=== PATIENT | male | born 1930 | race Asian ===

== ENCOUNTER 2017-11-02 11:59 | Emergency (ER) | payer OTHER, MEDICAID ==
[~2017-11-02] VITALS: Ht 175.3 cm; Wt 64.0 kg
[2017-11-02 12:01] VITALS: BP 145/94
[2017-11-02] MEDS ORDERED: LOVA10TA PO (12:48)
[2017-11-02] MEDS ORDERED: OXYB5TAB33 PO (12:48)
[2017-11-02] MEDS ORDERED: HYDR200T72 PO (12:48)
[2017-11-02] MEDS ORDERED: PRED5TAB25 PO (12:48)
[2017-11-02] MEDS ORDERED: METF500T5 PO (12:48)
[2017-11-02] MEDS ORDERED: TAMS-11 PO (12:52)
[2017-11-02] MEDS ORDERED: POLY17PO5 PO (12:52)
[2017-11-02] MEDS ORDERED: AMIT10TA PO (12:52)
[2017-11-02] MEDS ORDERED: PRAM0.125 PO (12:52)
[2017-11-02] MEDS ORDERED: FOLI0.4T2 PO (12:52)
[2017-11-02] MEDS ORDERED: OXYcodone/APAP 5/325MG TABLET PO ONE (13:00)
[2017-11-02] MEDS ORDERED: OXYcodone/APAP 5/325MG TABLET ONE (13:20)
== END 2017-11-02 14:20 | disposition home or self-care (01) ==
LOC: ED 14:14
DX: M47.896 Other spondylosis, lumbar region (principal); M54.16 Radiculopathy, lumbar region; M54.41 Lumbago with sciatica, right side; M19.90 Unspecified osteoarthritis, unspecified site; Z79.84 Long term (current) use of oral hypoglycemic drugs
CPT/HCPCS: 72110; 99284

== ENCOUNTER 2017-11-04 14:21 | Emergency (ER) | payer OTHER, MEDICAID ==
[~2017-11-04] VITALS: Ht 175.3 cm; Wt 63.6 kg
[~2017-11-04 14:21] MED LIST: AMIT10TA PO; FOLI0.4T2 PO; HYDR200T72 PO; LOVA10TA PO; METF500T5 PO; OXYB5TAB33 PO; POLY17PO5 PO; PRAM0.125 PO; PRED5TAB25 PO; TAMS-11 PO
[2017-11-04] MEDS ORDERED: KETOROLAC 30 MG/1 ML ONE (15:44)
[2017-11-04] MEDS ORDERED: CYCLOBENZAPRINE 10 MG TABLET ONE (15:45)
[2017-11-04] MEDS ORDERED: KETOROLAC 30 MG/1 ML IM ONE (16:00)
[2017-11-04] MEDS ORDERED: CYCLOBENZAPRINE 10 MG TABLET PO ONE (16:00)
[2017-11-04 17:20] VITALS: BP 139/57
== END 2017-11-04 17:23 | disposition home or self-care (01) ==
LOC: ED 16:50
DX: M46.1 Sacroiliitis, not elsewhere classified (principal); M19.90 Unspecified osteoarthritis, unspecified site; E11.9 Type 2 diabetes mellitus without complications
CPT/HCPCS: 72202; 96372; 99284; J1885

== ENCOUNTER 2017-11-25 17:26 | Emergency (ER) | payer OTHER, MEDICAID ==
[~2017-11-25] VITALS: Ht 175.3 cm; Wt 64.1 kg
[2017-11-25 18:52] LABS: BASOPHILS # (AUTO) 0.02 x10^3/uL (0-0.1); BASOPHILS % (AUTO) 1 % (0-1); EOSINOPHILS # (AUTO) 0.16 x10^3/uL (0-0.4); EOSINOPHILS % (AUTO) 3 % (1-7); LYMPHOCYTES # (AUTO) 1.56 x10^3/uL (1-3.4); LYMPHOCYTES % (AUTO) 33 % (22-44); MD NO; MEAN CORPUSCULAR HEMOGLOBIN 34.4 pg (27.5-34.5); MEAN CORPUSCULAR HGB CONC 33.6 g/dL (33.2-36.2); MEAN CORPUSCULAR VOLUME 102.3 fL (81-97); MEAN PLATELET VOLUME 6.8 fL (7.4-10.4); MONOCYTES % (AUTO) 6 % (2-9); NEUTROPHILS # (AUTO) 2.67 x10^3/uL (1.8-6.8); NEUTROPHILS % (AUTO) 57 % (42-75); PLATELET COUNT 217 x10^3/uL (130-400); RED BLOOD COUNT 3.35 x10^6/uL (4.38-5.82)
[2017-11-25 19:02] LABS: ALANINE AMINOTRANSFERASE 37 U/L (12-78); ALBUMIN 3.6 g/dL (3.4-5.0); ANION GAP 3 mmol/L (5-15); CHLORIDE 108 mmol/L (98-107); CREATININE 0.87 mg/dL (0.7-1.3)
[2017-11-25 19:05] LABS: ALKALINE PHOSPHATASE 57 U/L (45-117); BILIRUBIN,TOTAL 0.5 mg/dL (0.2-1.0); TOTAL PROTEIN 6.6 g/dL (6.4-8.2)
[2017-11-25] MEDS ORDERED: HYDROmorphone 2 MG/ML, 1ML ONE (19:29)
[2017-11-25] MEDS ORDERED: HYDROmorphone 1 MG/ML, 1ML IM ONE (19:30)
[2017-11-25 21:41] VITALS: BP 130/78
== END 2017-11-25 21:43 | disposition home or self-care (01) ==
LOC: ED 21:08
DX: M54.41 Lumbago with sciatica, right side (principal); E11.9 Type 2 diabetes mellitus without complications; M19.90 Unspecified osteoarthritis, unspecified site
CPT/HCPCS: 36415; 80053; 85025; 96372; 99284; J1170; 99282

== ENCOUNTER 2018-01-01 20:13 | Emergency (ER) | payer OTHER, MEDICAID ==
[2018-01-01] MEDS ORDERED: HYDROcodone/APAP 5/325 TABLET ONE (21:03)
[2018-01-01 21:19] LABS: BASOPHILS # (AUTO) 0.02 x10^3/uL (0-0.1); BASOPHILS % (AUTO) 0 % (0-1); EOSINOPHILS # (AUTO) 0.02 x10^3/uL (0-0.4); EOSINOPHILS % (AUTO) 0 % (1-7); LYMPHOCYTES # (AUTO) 2.07 x10^3/uL (1-3.4); LYMPHOCYTES % (AUTO) 33 % (22-44); MD NO; MEAN CORPUSCULAR HEMOGLOBIN 34.1 pg (27.5-34.5); MEAN CORPUSCULAR HGB CONC 34.1 g/dL (33.2-36.2); MEAN CORPUSCULAR VOLUME 99.9 fL (81-97); MEAN PLATELET VOLUME 7.8 fL (7.4-10.4); MONOCYTES % (AUTO) 6 % (2-9); NEUTROPHILS % (AUTO) 60 % (42-75); PLATELET COUNT 163 x10^3/uL (130-400); RED BLOOD COUNT 3.06 x10^6/uL (4.38-5.82); RED CELL DISTRIBUTION WIDTH 14.4 % (9.4-14.8)
[2018-01-01 21:23] LABS: ALANINE AMINOTRANSFERASE 70 U/L (12-78); ALBUMIN 3.4 g/dL (3.4-5.0); ANION GAP 3 mmol/L (5-15); CALCIUM 8.4 mg/dL (8.5-10.1); CHLORIDE 109 mmol/L (98-107); CREATININE 0.95 mg/dL (0.7-1.3)
[2018-01-01] MEDS: HYDROcodone/APAP 5/325 TABLET PO PRN ×2 (21:24→21:25)
[2018-01-01 21:25] LABS: ALKALINE PHOSPHATASE 63 U/L (45-117); BILIRUBIN,TOTAL 0.3 mg/dL (0.2-1.0); TOTAL PROTEIN 6.4 g/dL (6.4-8.2)
[2018-01-01 21:54] VITALS: BP 117/61
== END 2018-01-01 22:16 | disposition home or self-care (01) ==
LOC: ED 21:26
DX: G95.29 Other cord compression (principal); M50.30 Other cervical disc degeneration, unspecified cervical region; M19.90 Unspecified osteoarthritis, unspecified site; E11.9 Type 2 diabetes mellitus without complications; R51 Headache
CPT/HCPCS: 36415; 70450; 72125; 80053; 85025; 99285

== ENCOUNTER 2018-03-20 15:16 | Inpatient (IN) | payer OTHER, MEDICAID ==
[~2018-03-20] VITALS: Ht 177.8 cm; Wt 60.9 kg
[~2018-03-20 15:16] MED LIST changes: +METF500T17 PO; -METF500T5 PO
[2018-03-20] MEDS ORDERED: SODIUM CHLORIDE FLUSH 10ML SYR IVF ONE (15:30)
[2018-03-20] MEDS ORDERED: SODIUM CHLORIDE 0.9% 1,000ML IVBOLUS ONE (15:30)
[2018-03-20 16:01] LABS: BASOPHILS # (AUTO) 0.03 x10^3/uL (0-0.1); BASOPHILS % (AUTO) 1 % (0-1); EOSINOPHILS % (AUTO) 0 % (1-7); LYMPHOCYTES # (AUTO) 0.98 x10^3/uL (1-3.4); LYMPHOCYTES % (AUTO) 19 % (22-44); MD NO; MEAN CORPUSCULAR HEMOGLOBIN 35.7 pg (27.5-34.5); MEAN CORPUSCULAR HGB CONC 34.4 g/dL (33.2-36.2); MEAN CORPUSCULAR VOLUME 103.7 fL (81-97); MEAN PLATELET VOLUME 7.5 fL (7.4-10.4); MONOCYTES # (AUTO) 0.11 x10^3/uL (0.2-0.8); MONOCYTES % (AUTO) 2 % (2-9); NEUTROPHILS # (AUTO) 4.13 x10^3/uL (1.8-6.8); NEUTROPHILS % (AUTO) 79 % (42-75); PLATELET COUNT 173 x10^3/uL (130-400); RED BLOOD COUNT 3.11 x10^6/uL (4.38-5.82); RED CELL DISTRIBUTION WIDTH 14.4 % (9.4-14.8)
[2018-03-20] MEDS ORDERED: ALEN70TA3 PO (16:01)
[2018-03-20] MEDS ORDERED: CALC625T13 PO (16:01)
[2018-03-20] MEDS ORDERED: GABA300C10 PO (16:01)
[2018-03-20] MEDS ORDERED: METH4TAB2 PO (16:01)
[2018-03-20] MEDS ORDERED: PYRI50TA9 PO (16:01)
[2018-03-20] MEDS ORDERED: ISON300T4 PO (16:01)
[2018-03-20 16:12] LABS: INTERNATIONAL NORMALIZED RATIO 1.05 (0.93-1.1); PROTHROMBIN TIME 10.9 Seconds (9.6-11.5)
[2018-03-20] MEDS ORDERED: BACITRACIN ZINC OINT 500U/GM, 0.9 GM ONE (16:12)
[2018-03-20 16:13] LABS: ALBUMIN 3.3 g/dL (3.4-5.0); ANION GAP 6 mmol/L (5-15); CALCIUM 8.6 mg/dL (8.5-10.1); CHLORIDE 113 mmol/L (98-107)
[2018-03-20 16:16] LABS: ALANINE AMINOTRANSFERASE 35 U/L (12-78); ALKALINE PHOSPHATASE 53 U/L (45-117); BILIRUBIN,TOTAL 0.4 mg/dL (0.2-1.0); CREATININE 0.85 mg/dL (0.7-1.3)
[2018-03-20] MEDS ORDERED: DILTIAZEM 5 MG/ML, 5ML IVPush ONE (17:00)
[2018-03-20] MEDS ORDERED: DILTIAZEM 5 MG/ML, 5ML ONE (17:07)
[2018-03-20 18:25] VITALS: BP 109/43
[2018-03-20] MEDS ORDERED: SODIUM CHLORIDE 0.9% 1,000 ML IV SCH (20:04)
[2018-03-20] MEDS ORDERED: LABETALOL 5MG/ML, 20ML IVPush PRN (20:30)
[2018-03-20] MEDS ORDERED: BISACODYL 10 MG SUPP PR PRN (20:30)
[2018-03-20] MEDS ORDERED: ONDANSETRON 2MG/ML, 2ML IVPush PRN (20:30)
[2018-03-20] MEDS ORDERED: POLYETHYLENE GLYCOL 17 GM PACKET PO PRN (20:30)
[2018-03-20] MEDS ORDERED: ACETAMINOPHEN 325 MG TABLET PO PRN (20:30)
[2018-03-20] MEDS ORDERED: morphine SULFATE 10 MG/ML, 1ML IVPush PRN (20:30)
[2018-03-20] MEDS ORDERED: DOCUSATE 100 MG CAPSULE PO PRN (20:30)
[2018-03-20] MEDS ORDERED: hydrALAzine 20 MG/ML, 1ML IVPush PRN (20:30)
[2018-03-20] MEDS ORDERED: ONDANSETRON ODT 4 MG PO PRN (20:30)
[2018-03-20] MEDS ORDERED: PROMETHAZINE 25 MG/ML, 1ML IM PRN (20:30)
[2018-03-20 21:07] VITALS: BP 101/52
[2018-03-20 21:07] LABS: CULTURE INDICATED? YES; MICROSCOPIC INDICATED
[2018-03-20 21:09] LABS: FREE T4 (FREE THYROXINE) 0.96 ng/dL (0.76-1.46); THYROID STIMULATING HORMONE 0.603 mIU/L (0.358-3.740)
[2018-03-20] MEDS: metFORMIN 500 MG TABLET PO SCH (21:10)
[2018-03-20] MEDS: ENOXAPARIN 60 MG/0.6 ML SQ SCH (21:11)
[2018-03-20] MEDS: GABAPENTIN 100 MG CAPSULE PO SCH (21:11)
[2018-03-20 21:19] LABS: HEMOGLOBIN A1C 7.3 % (4.2-6.3)
[2018-03-20] MEDS: METOPROLOL TARTRATE 25 MG TABLET PO SCH (21:21)
[2018-03-20] MEDS ORDERED: CELE200C PO (21:38)
[2018-03-20] MEDS ORDERED: MULT-658 PO (21:40)
[2018-03-20] MEDS ORDERED: CALC-112 PO (21:40)
[2018-03-20] MEDS ORDERED: FINA5TAB4 PO (21:40)
[2018-03-21] VITALS (8 sets, daily range): BP systolic 96–123; BP diastolic 51–72
[2018-03-21] MEDS: METOPROLOL TARTRATE 25 MG TABLET PO SCH ×2 (05:00→18:15)
[2018-03-21 05:12] LABS: BASOPHILS # (AUTO) 0.05 x10^3/uL (0-0.1); BASOPHILS % (AUTO) 1 % (0-1); EOSINOPHILS # (AUTO) 0.06 x10^3/uL (0-0.4); EOSINOPHILS % (AUTO) 1 % (1-7); LYMPHOCYTES # (AUTO) 3.43 x10^3/uL (1-3.4); LYMPHOCYTES % (AUTO) 44 % (22-44); MD NO; MEAN CORPUSCULAR HGB CONC 33.9 g/dL (33.2-36.2); MEAN CORPUSCULAR VOLUME 103.3 fL (81-97); MEAN PLATELET VOLUME 8.3 fL (7.4-10.4); MONOCYTES # (AUTO) 0.44 x10^3/uL (0.2-0.8); MONOCYTES % (AUTO) 6 % (2-9); NEUTROPHILS # (AUTO) 3.79 x10^3/uL (1.8-6.8); NEUTROPHILS % (AUTO) 49 % (42-75); PLATELET COUNT 112 x10^3/uL (130-400); RED CELL DISTRIBUTION WIDTH 14.1 % (9.4-14.8)
[2018-03-21 05:26] LABS: ALBUMIN 3.2 g/dL (3.4-5.0); ANION GAP 5 mmol/L (5-15); CALCIUM 8.2 mg/dL (8.5-10.1); CHLORIDE 112 mmol/L (98-107)
[2018-03-21 05:30] LABS: ALANINE AMINOTRANSFERASE 45 U/L (12-78); ALKALINE PHOSPHATASE 47 U/L (45-117); BILIRUBIN,TOTAL 0.6 mg/dL (0.2-1.0); CHOL/HDL RATIO 2.1; CHOLESTEROL, TOTAL 138 mg/dL (140-239); CREATININE 0.61 mg/dL (0.7-1.3); HDL CHOL % 49 % (26-37); HDL CHOLESTEROL (DIRECT) 67 mg/dL (40-60); LDL CHOLESTEROL,CALCULATED 53 mg/dL (54-169); LDL/HDL RATIO 0.8 (0.5-3.0); TOTAL PROTEIN 5.7 g/dL (6.4-8.2); TRIGLYCERIDES 91 mg/dL (50-200); VLDL CHOLESTEROL 18 mg/dL (0-25)
[2018-03-21] MEDS: CALCIUM POLYCARBOPHIL 625 MG TABLET PO SCH (08:20)
[2018-03-21] MEDS: TAMSULOSIN 0.4 MG CAP.ER.24H PO SCH (08:20)
[2018-03-21] MEDS: PYRIDOXINE 50MG TABLET PO SCH (08:20)
[2018-03-21] MEDS: metFORMIN 500 MG TABLET PO SCH ×2 (08:20→20:14)
[2018-03-21] MEDS: PRAMIPEXOLE 0.125MG TABLET PO SCH (08:21)
[2018-03-21] MEDS: ISONIAZID 300 MG TABLET PO SCH (08:21)
[2018-03-21] MEDS: GABAPENTIN 100 MG CAPSULE PO SCH ×3 (08:22→20:14)
[2018-03-21] MEDS: HYDROXYCHLOROQUINE 200 MG TABLET PO SCH (08:22)
[2018-03-21] MEDS: OXYBUTYNIN CHLORIDE 5 MG TABLET PO SCH (08:22)
[2018-03-21] MEDS: FOLIC ACID 1 MG TABLET PO SCH (08:23)
[2018-03-21] MEDS: ENOXAPARIN 60 MG/0.6 ML SQ SCH ×2 (08:23→20:15)
[2018-03-21] MEDS ORDERED: ERGOCALCIFEROL 50,000 UNIT CAPSULE PO SCH (09:00)
[2018-03-21] MEDS: FINASTERIDE 5 MG TABLET PO SCH (13:47)
[2018-03-21 17:18] LABS: CLOSTRIDIUM DIFFICILE ANTIGEN NEGATIVE; CLOSTRIDIUM DIFFICILE TOXIN NEGATIVE (Negative)
[2018-03-22 00:20] VITALS: BP 129/66
[2018-03-22 05:59] VITALS: BP 139/67
[2018-03-22] MEDS: METOPROLOL TARTRATE 25 MG TABLET PO SCH (06:03)
[2018-03-22] MEDS ORDERED: ALENDRONATE 35 MG TABLET PO SCH (06:30)
[2018-03-22 06:35] VITALS: BP 124/62
[2018-03-22] MEDS: ENOXAPARIN 60 MG/0.6 ML SQ SCH (07:43)
[2018-03-22] MEDS: metFORMIN 500 MG TABLET PO SCH (07:44)
[2018-03-22] MEDS: FINASTERIDE 5 MG TABLET PO SCH (07:44)
[2018-03-22] MEDS: GABAPENTIN 100 MG CAPSULE PO SCH ×2 (07:44→16:13)
[2018-03-22] MEDS: PRAMIPEXOLE 0.125MG TABLET PO SCH (07:44)
[2018-03-22] MEDS: CALCIUM POLYCARBOPHIL 625 MG TABLET PO SCH (07:44)
[2018-03-22] MEDS: TAMSULOSIN 0.4 MG CAP.ER.24H PO SCH (07:45)
[2018-03-22] MEDS: ISONIAZID 300 MG TABLET PO SCH (07:45)
[2018-03-22] MEDS: OXYBUTYNIN CHLORIDE 5 MG TABLET PO SCH (07:45)
[2018-03-22] MEDS: FOLIC ACID 1 MG TABLET PO SCH (07:45)
[2018-03-22] MEDS: HYDROXYCHLOROQUINE 200 MG TABLET PO SCH (07:49)
[2018-03-22] MEDS: PYRIDOXINE 50MG TABLET PO SCH (07:50)
[2018-03-22 08:31] LABS: TROPONIN I 0.026 ng/mL (0.000-0.045)
[2018-03-22] MEDS ORDERED: REGADENOSON 0.4 MG/5 ML SYRINGE ONE (08:59)
[2018-03-22 12:19] VITALS: BP 101/57
[2018-03-22] MEDS ORDERED: ERGO500017 PO (14:42)
[2018-03-22] MEDS ORDERED: METO25TA35 PO (14:42)
== END 2018-03-22 16:30 | disposition home or self-care (01) | DRG 309 ==
LOC: ED 17:43 → EDIP 17:44 → 5SO 18:18 → DCLOUNGE 03-22 16:15
PROVIDERS: ADMIT Hospitalist; ATTEND Hospitalist
DX: I48.91 Unspecified atrial fibrillation (principal); D68.69 Other thrombophilia; E44.0 Moderate protein-calorie malnutrition; Z68.1 Body mass index [BMI] 19.9 or less, adult; D53.9 Nutritional anemia, unspecified; E11.9 Type 2 diabetes mellitus without complications; E55.9 Vitamin D deficiency, unspecified; F03.90 Unspecified dementia, unspecified severity, without behavioral disturbance, psychotic disturbance, mood disturbance, and anxiety; I35.1 Nonrheumatic aortic (valve) insufficiency; I44.4 Left anterior fascicular block; I45.81 Long QT syndrome; M81.0 Age-related osteoporosis without current pathological fracture; W18.39XA Other fall on same level, initial encounter; N40.0 Benign prostatic hyperplasia without lower urinary tract symptoms; R56.9 Unspecified convulsions; S00.81XA Abrasion of other part of head, initial encounter; Z20.1 Contact with and (suspected) exposure to tuberculosis; Z87.891 Personal history of nicotine dependence; Y93.89 Activity, other specified; Y92.89 Other specified places as the place of occurrence of the external cause
CPT/HCPCS: 36415; 70450; 70551; 71045; 78452; 80053; 80061; 81001; 82306; 82607; 83036; 83735; 84100; 84439; 84443; 84484; 85025; 85610; 85730; 87077; 87086; 87186; 87324; 93005; 93017; 93306; 93880; 96361; 96374; 99291; G0378; J1650; J2785; A9502; C9898; J7030

== ENCOUNTER 2018-07-23 14:58 | Emergency (ER) | payer OTHER, MEDICAID ==
[~2018-07-23] VITALS: Ht 177.8 cm; Wt 60.0 kg
[~2018-07-23 14:58] MED LIST changes: +ALEN70TA3 PO; +CALC-112 PO; +CALC625T13 PO; +CELE200C PO; +ERGO500017 PO; +FINA5TAB4 PO; +GABA300C10 PO; +ISON300T10 PO; +METH4TAB2 PO; +METO25TA35 PO; +MULT-658 PO; +PYRI50TA9 PO
[2018-07-23 15:51] LABS: BASOPHILS # (AUTO) 0.02 x10^3/uL (0-0.1); BASOPHILS % (AUTO) 0 % (0-1); EOSINOPHILS % (AUTO) 0 % (1-7); LYMPHOCYTES # (AUTO) 1.35 x10^3/uL (1-3.4); LYMPHOCYTES % (AUTO) 26 % (22-44); MD NO; MEAN CORPUSCULAR HGB CONC 34.6 g/dL (33.2-36.2); MEAN CORPUSCULAR VOLUME 103.9 fL (81-97); MEAN PLATELET VOLUME 7.4 fL (7.4-10.4); MONOCYTES # (AUTO) 0.18 x10^3/uL (0.2-0.8); MONOCYTES % (AUTO) 3 % (2-9); NEUTROPHILS # (AUTO) 3.63 x10^3/uL (1.8-6.8); NEUTROPHILS % (AUTO) 70 % (42-75); PLATELET COUNT 176 x10^3/uL (130-400); RED BLOOD COUNT 3.41 x10^6/uL (4.38-5.82); RED CELL DISTRIBUTION WIDTH 13.4 % (9.4-14.8)
--- NOTE | 2018-07-23 15:52 | NUR ---
TASK RN: UNABLE TO OBTAIN EKG. PT TAKEN FOR IMAGING
[2018-07-23 16:01] LABS: ALBUMIN 3.7 g/dL (3.4-5.0); ANION GAP 4 mmol/L (5-15); CALCIUM 8.7 mg/dL (8.5-10.1); CHLORIDE 106 mmol/L (98-107); CREATININE 0.81 mg/dL (0.7-1.3); INTERNATIONAL NORMALIZED RATIO 0.98 (0.93-1.1); PROTHROMBIN TIME 10.3 Seconds (9.6-11.5)
[2018-07-23 16:10] VITALS: BP 150/62
--- NOTE | 2018-07-23 16:10 | NUR ---
TASK RN: EKG PERFORMED. PT RESTING ON GURNEY. NADN. TRAORES.
[2018-07-23] MEDS ORDERED: ACETAMINOPHEN 500 MG TABLET PO ONE (17:30)
[2018-07-23] MEDS ORDERED: ACETAMINOPHEN 500 MG TABLET ONE (17:44)
== END 2018-07-23 18:15 | disposition home or self-care (01) ==
LOC: ED 17:28
DX: S09.8XXA Other specified injuries of head, initial encounter (principal); S80.211A Abrasion, right knee, initial encounter; E11.65 Type 2 diabetes mellitus with hyperglycemia; W01.0XXA Fall on same level from slipping, tripping and stumbling without subsequent striking against object, initial encounter; Y93.89 Activity, other specified; Y92.89 Other specified places as the place of occurrence of the external cause; Y99.8 Other external cause status
CPT/HCPCS: 36415; 70450; 72125; 80048; 82040; 82962; 85025; 85610; 85730; 93005; 99284